=== PATIENT | female | born 1965 | race Caucasian/White ===

== ENCOUNTER 2021-02-22 11:03 | Outpatient (REF) | payer MEDICAID, SELFPAY ==
[2021-02-22 11:23] LABS: MANUAL DIFF FLAG NO
[2021-02-22 11:56] LABS: Basophils Percent Auto 0.6 % (0-2); Eosinophils Absolute Auto 0.1 X10*3/uL (0.0-0.4); Eosinophils Percent Auto 1.3 % (0-4); Hematocrit 44.1 % (37.0-47.0); Hemoglobin 14.6 g/dl (12.0-16.0); Imm Gran Abs Auto 0.01 X10*3/uL (0.00-0.03); Imm Gran Pct Auto 0.2 % (0.0-0.4); Lymphocytes Absolute Auto 1.3 X10*3/uL (1.2-4.9); Lymphocytes Percent Auto 23.1 % (20-40); Mean Corpuscular HGB Conc 33.1 g/dl (31.0-35.0); Mean Corpuscular Hemoglobin 30.3 pg (27.0-33.0); Mean Corpuscular Volume 91.5 fL (80.0-98.0); Mean Platelet Volume 11.1 fL (9.4-12.3); Monocytes Absolute Auto 0.4 X10*3/uL (0.1-1.2); Monocytes Percent Auto 7.3 % (2-11); Neutrophils Absolute Auto 3.7 x10*3/uL (2.0-8.3); Neutrophils Percent Auto 67.5 % (45-73); Platelet Count 163 X10*3/uL (160-400); Red Blood Count 4.82 X10*6/uL (4.20-5.50); Red Cell Distribution Width 13.2 % (11.0-16.0); White Blood Count 5.5 X10*3/uL (4.8-10.8)
[2021-02-22 12:35] LABS: Appearance Urine CLEAR; Color Urine YELLOW; Glucose Urine UA NEG (NEG); Leukocyte Esterase Urine NEG (NEG); Nitrite Urine NEG (NEG); Urine Blood NEG (NEG); Urine Ketones NEG (NEG); Urine Protein NEG (NEG-TRACE)
[2021-02-22 12:49] LABS: Alanine Aminotransferase 58 U/L (0-31); Albumin Level 4.6 g/dL (3.5-5.0); Alkaline Phosphatase 137 U/L (39-117); Anion Gap 12 (12-20); Aspartate Amino Transferase 46 U/L (5-31); Bilirubin Total 0.7 mg/dL (0.0-1.0); Blood Urea Nitrogen 7 mg/dL (9-16); Calcium 9.7 mg/dL (8.4-10.2); Carbon Dioxide 24 mmol/L (22-29); Chloride 110 mmol/L (96-108); Cholesterol 167 mg/dL; Estimated Glomerular Filt Rate 49; Glucose Random 123 mg/dL (60-115); HDL Cholesterol 47 mg/dL; LDL Cholesterol Calculated 90 mg/dl; Potassium 4.4 mmol/L (3.3-5.1); Sodium 142 mmol/L (135-145); Total Protein 6.9 g/dL (6.5-8.0); Triglycerides 154 mg/dL
[2021-02-22 14:52] LABS: CT PCR NOT DETECTED (Not Detect.); NG PCR NOT DETECTED (Not Detect.)
[2021-02-23 08:31] LABS: Syphilis Screen Nonreactive (Nonreactive)
[2021-02-23 11:40] LABS: Absolute CD3 Count 1115 cells/uL (840-3060); Absolute CD4 Count 717 cells/uL (490-1740); Absolute CD8 Count 393 cells/uL (180-1170); Absolute Lymphocytes 1322 cells/uL (850-3900); CD4 CD8 Ratio 1.83 (0.86-5.00); Percent CD3 Cells 84 % (57-85); Percent CD4 Cells 54 % (30-61); Percent CD8 Cells 30 % (12-42)
[2021-02-24 16:51] LABS: TS Negative Control Passed; TS Panel A 0; TS Panel B 0; TS Positive Control Passed; TSpotTB Negative (Negative)
[2021-02-24 17:51] LABS: HIV RNA PCR Qn Copies <20 NOT DETECTED copies/mL (NOT DETECTED); HIV RNA PCR Qn Log Copies <1.30 NOT DETECTED (NOT DETECTED)
== END 2021-02-22 11:04 | disposition home or self-care (01) ==
LOC: HO.LAB 11:03
PROVIDERS: PCP Internal Medicine; Visit Provider Internal Medicine
DX: B20 Human immunodeficiency virus [HIV] disease (principal)
CPT/HCPCS: 80053; 80061; 81003; 85025; 86359; 86360; 86481; 86780; 87491; 87536; 87591

== ENCOUNTER 2021-04-10 10:40 | Outpatient (REF) | payer MEDICAID, SELFPAY ==
[2021-04-10 12:37] LABS: Iron 84 mcg/dL (30-160); Percent Iron Saturation 20 % (15-50); Total Iron Binding Capacity 420 mcg/dL (228-428); Unsaturated Iron Binding 336 ug/dL
[2021-04-10 13:00] LABS: Ferritin 23 ng/mL (10-250)
[2021-04-10 13:12] LABS: Folate 4.1 ng/mL (> or = 4.0); Vitamin B12 232 pg/mL (200-900)
[2021-04-13 03:22] LABS: Zinc 85 mcg/dL (60-130)
[2021-04-15 06:06] LABS: Vitamin B1 <6 nmol/L (8-30)
[2021-04-16 18:26] LABS: Vitamin A 62 mcg/dL (38-98)
== END 2021-04-10 10:41 | disposition home or self-care (01) ==
LOC: HO.LAB 10:40
PROVIDERS: PCP Internal Medicine; Referring Provider Surgery; Visit Provider Physician Assistant Surgical
DX: K21.9 Gastro-esophageal reflux disease without esophagitis (principal); E66.9 Obesity, unspecified; Z72.0 Tobacco use; Z90.3 Acquired absence of stomach [part of]
CPT/HCPCS: 36415; 82306; 82607; 82728; 82746; 83540; 84425; 84590; 84630; 99212

== ENCOUNTER 2021-12-28 09:04 | Outpatient (REF) | payer MEDICAID, SELFPAY ==
--- NOTE | ~2021-12-28 | XR_ITS ---
EXAMINATION: XR CHEST CLINICAL INFORMATION: COPD COMPARISON: Previous chest x-ray most recent July 2017 TECHNIQUE: 2 views of the chest were obtained. FINDINGS: The cardiac and mediastinal contours are normal. The lungs are clear. There is no pleural effusion or pneumothorax. There are degenerative changes of the spine. XR/XR chest 2V IMPRESSION: No evidence for acute disease in the chest.
== END 2021-12-28 09:05 | disposition home or self-care (01) ==
LOC: HO.XRAY 09:04
PROVIDERS: PCP Internal Medicine; Visit Provider Internal Medicine
DX: R07.89 Other chest pain (principal)
CPT/HCPCS: 71046

== ENCOUNTER 2022-06-08 11:07 | Emergency (ER) | payer MEDICAID, SELFPAY ==
--- NOTE | ~2022-06-08 | CT_ITS ---
EXAMINATION: CT facial bones wo IV con, CT head/brain wo IV con INDICATION INFORMATION: Reason for Exam fall, head strike, L facial swelling/numb COMPARISON: None TECHNIQUE: Separate noncontrast CT examinations of the head and face were performed. Coronal and sagittal images were created for each examination at the technologist workstation. This CT examination was performed using dose optimization techniques as appropriate, variously including the following: *Automated exposure control *Adjustment of mA and/or kV according to patient size (this includes techniques or standardized protocols for targeted exams where dose is matched to indication/reason for exam; i.e. extremities or head) *Use of iterative reconstruction technique DLP: 848 FINDINGS: Head: Left periorbital soft tissue swelling. No acute osseous abnormality. The mastoid air cells and visualized portions of the paranasal sinuses are well aerated. There is no evidence of acute intracranial hemorrhage or territorial infarction. No abnormal mass effect or midline shift is seen. Baez to white matter differentiation is well preserved. No extra-axial fluid collections are identified. No hydrocephalus. No significant volume loss. There is no abnormal attenuation within the brain parenchyma. Facial Bones: There is no evidence of an acute facial bone fracture. The paranasal sinuses are well aerated. Leftward deviation and osseous spurring of the nasal septum The maxilla and mandible are edentulous. The orbits are unremarkable in appearance. Degenerative changes of the temporomandibular joints. Advanced arthrosis of the atlantodental articulation is noted. CT/CT facial bones wo IV con IMPRESSION: 1. No acute intracranial abnormality. 2. No acute facial fracture.
--- NOTE | ~2022-06-08 | CT_ITS ---
EXAMINATION: CT facial bones wo IV con, CT head/brain wo IV con INDICATION INFORMATION: Reason for Exam fall, head strike, L facial swelling/numb COMPARISON: None TECHNIQUE: Separate noncontrast CT examinations of the head and face were performed. Coronal and sagittal images were created for each examination at the technologist workstation. This CT examination was performed using dose optimization techniques as appropriate, variously including the following: *Automated exposure control *Adjustment of mA and/or kV according to patient size (this includes techniques or standardized protocols for targeted exams where dose is matched to indication/reason for exam; i.e. extremities or head) *Use of iterative reconstruction technique DLP: 848 FINDINGS: Head: Left periorbital soft tissue swelling. No acute osseous abnormality. The mastoid air cells and visualized portions of the paranasal sinuses are well aerated. There is no evidence of acute intracranial hemorrhage or territorial infarction. No abnormal mass effect or midline shift is seen. Baez to white matter differentiation is well preserved. No extra-axial fluid collections are identified. No hydrocephalus. No significant volume loss. There is no abnormal attenuation within the brain parenchyma. Facial Bones: There is no evidence of an acute facial bone fracture. The paranasal sinuses are well aerated. Leftward deviation and osseous spurring of the nasal septum The maxilla and mandible are edentulous. The orbits are unremarkable in appearance. Degenerative changes of the temporomandibular joints. Advanced arthrosis of the atlantodental articulation is noted. CT/CT head/brain wo IV con IMPRESSION: 1. No acute intracranial abnormality. 2. No acute facial fracture.
[2022-06-08 11:11] VITALS: BP 146/71; PULSE 88; RESP 20; TEMP 36.3; O2SAT 96; BMI 32.3
[2022-06-08 11:24] LABS: MANUAL DIFF FLAG NO
--- NOTE | 2022-06-08 11:25 | PC.NURSE ---
pupils - suma. speaks in full sentences.
[2022-06-08 11:26] LABS: Basophils Percent Auto 0.9 % (0-2); Eosinophils Absolute Auto 0.1 X10*3/uL (0.0-0.4); Eosinophils Percent Auto 2.1 % (0-4); Hematocrit 39.2 % (37.0-47.0); Imm Gran Abs Auto 0.01 X10*3/uL (0.00-0.03); Imm Gran Pct Auto 0.2 % (0.0-0.4); Lymphocytes Absolute Auto 1.7 X10*3/uL (1.2-4.9); Mean Corpuscular HGB Conc 33.2 g/dl (31.0-35.0); Mean Corpuscular Volume 90.5 fL (80.0-98.0); Mean Platelet Volume 10.2 fL (9.4-12.3); Monocytes Absolute Auto 0.3 X10*3/uL (0.1-1.2); Monocytes Percent Auto 7.6 % (2-11); Neutrophils Absolute Auto 2.1 x10*3/uL (2.0-8.3); Neutrophils Percent Auto 49.2 % (45-73); Platelet Count 179 X10*3/uL (160-400); Red Blood Count 4.33 X10*6/uL (4.20-5.50); Red Cell Distribution Width 13.6 % (11.0-16.0); White Blood Count 4.3 X10*3/uL (4.8-10.8)
[2022-06-08 11:41] LABS: Anion Gap 14 (12-20); Blood Urea Nitrogen 6 mg/dL (9-16); Calcium 8.6 mg/dL (8.4-10.2); Carbon Dioxide 25 mmol/L (22-29); Chloride 105 mmol/L (96-108); Creatinine Clr Calc Pharmacy 68.3; Estimated Glomerular Filt Rate 55; Glucose Random 185 mg/dL (60-115); Potassium 3.5 mmol/L (3.3-5.1); Sodium 140 mmol/L (135-145)
--- NOTE | 2022-06-08 12:48 | ED_ITS ---
HPI - General Adult General Chief complaint: Head Injury Stated complaint: head inj ? fall l side head numbness Time Seen by Provider: 06/08/22 12:39 History of Present Illness HPI narrative: Patient complains of bruising and a feeling of numbness on her left forehead after off fall 3 days ago, she does not know how she fell, she went to bed and then woke up on the floors several hours later, she immediately came to full alertness, but she does not remember how she fell or why she fell she denies any preceding chest pain she has no headache never had a headache she denies any difficulty with her balance, she was not confused she had no weakness in extremities on left or right side, she has felt fine ever since and is not recall any preceding symptoms and does not know how she came to be on the floor, she denies any drugs or alcohol She does take amitriptyline as a sleep aid and otherwise only medical history is high blood pressure and HIV, her HIV is well controlled she says viral load is undetectable and she is compliant with her medications At this time the only complaint is some bruising on the left forehead as well as a feeling of numbness described as decreased sensation in the forehead area around the bruising She denies any neck pain no back pain no extremity injuries denies any muscle weakness Related Data Home Medications Medication Instructions Recorded Confirmed amitriptyline 150 mg tablet 150 mg PO BEDTIME 04/10/21 04/10/21 amitriptyline 50 mg tablet 50 mg PO BEDTIME 04/10/21 04/10/21 atorvastatin 20 mg tablet 20 mg PO DAILY 04/10/21 04/10/21 bictegravir 50 mg-emtricitabine 1 tab PO DAILY 04/10/21 04/10/21 200 mg-tenofovir alafenam 25 mg tablet (Biktarvy) hydroxyzine pamoate 50 mg capsule 50 mg PO TID 04/10/21 04/10/21 nicotine 21 mg/24 hr daily 1 patch topical DAILY 04/10/21 04/10/21 transdermal patch pantoprazole 20 mg tablet,delayed 20 mg PO DAILY 04/10/21 04/10/21 release varenicline 1 mg tablet 1 mg PO BID 04/10/21 04/10/21 Previous Rx's Medication Instructions Recorded cholecalciferol (vitamin D3) 125 125 mcg PO DAILY #30 caps 04/10/21 mcg (5,000 unit) capsule thiamine HCl (vitamin B1) 100 mg 100 mg PO DAILY #30 tabs 04/15/21 tablet Allergies Allergy/AdvReac Type Severity Reaction Status Date / Time KYUNG Inhibitors Allergy Intermediate RASH Verified 04/10/21 10:45 [KYUNG INHIBITORS] methocarbamol [From ROBAXIN] Allergy Intermediate RASH, hives Verified 04/10/21 10:45 aspirin [ASA] Allergy Unknown LIVER AND Verified 04/10/21 10:45 KIDNEY ISSUES cyclobenzaprine Allergy Unknown ITCHY Verified 04/10/21 10:45 [From FLEXERIL] THROAT NSAIDS (Non-Steroidal AdvReac Unknown LIVER Verified 04/10/21 10:45 Anti-Inflamma PROBLEMS [NSAIDS (NON-STEROIDAL ANTI-INFLAMMA] AC Inhibitors Allergy Unknown unknown Uncoded 04/10/21 10:45 Flexeril Allergy Unknown unkown Uncoded 04/10/21 10:45 Motrin Allergy Unknown unknown Uncoded 04/10/21 10:45 Pt states no known allergy to Allergy Unknown unknown Uncoded 04/10/21 10:45 PMFSH Past Medical History Source: nursing notes reviewed Surgical History Hx of bariatric surgery Family History Family History Mother Emphysema lung Father No problems noted. Sister No problems noted. Sister No problems noted. Sister Back problem Brother Hypertension Diabetes Brother Hypertension Diabetes Brother Diabetes Hypertension Social History Social History Alcohol intake: current Alcohol intake frequency: holidays/special occasions only Patient Tobacco Use Status: Current someday Tobacco user Tobacco use type: Cigarette Cigarettes Per Day: 5 Advance Directives: Yes Advance Directives Information Provided: No Advance Directives on File: No Physical Exam ED Vital Signs: Vital Signs - 24 hr 06/08/22 11:11 06/08/22 14:12 Temperature 97.3 F Pulse Rate 88 73 Respiratory Rate 20 16 Blood Pressure 146/71 H 167/77 H Pulse Oximetry 96 97 Oxygen Delivery Method Room Air BMI result Body Mass Index 32.3 General appearance no acute distress, cooperative There is no scalp hematoma, no raccoon eyes, no scalp defect no Abebe sign Facial exam there is an abrasion and some ecchymosis just above the left orbit on the forehead, there is some swelling of the eyelid Mandible is fully mobile, no dental injuries The neck is supple and nontender The chest is clear to auscultation with full symmetric breath sounds, no chest wall tenderness Heart no murmur Abdomen soft nontender Extremities full range of motion x4 without tenderness swelling or deformity Neuro gait and balance are normal, interaction comprehension and expression are normal, motor is 5/5 x4, there is no facial asymmetry, sensation on the forehead is decreased on the left side, she can not distinguish sharp from dull on the left side of the forehead, she does feel the pressure of the touch Right side of the forehead has normal sensation and distinguishes between sharp and dull Otherwise there is no obvious cranial nerve deficit Finger to nose is normal, balance is normal, cerebellar exam normal Course Course Course Narrative: No significant abnormalities on chemistry or CBC Troponin was negative, 3.5 EKG was a normal sinus rhythm, intervals, IA interval normal, QRS duration normal, QT normal There were no acute ST elevations, but there were EKG changes from the previous EKG done in 2016, there is now Flattening of T-waves in multiple leads Patient never experienced chest pain, it is 3 days since her fainting episode, no evidence of acute coronary syndrome now The numb feeling on the left side of her forehead is likely related to bumping her head, there is no motor deficit, no facial asymmetry CT of the head and facial bones was negative with no evidence of bleed or fracture or stroke Plan is to follow with her doctor for evaluation of syncopal episode, EKG ch anges and possible referral to [employer] for a Holter monitor Otherwise well-appearing patient ambulating easily with no discomfort is discharged Medical Decision Making Lab Data [facility] Lab Attestation statement: I reviewed the patient's lab results. 06/08/22 11:20 06/08/22 11:20 Labs: Lab Results 06/08/22 06/08/22 06/08/22 Range/Units 11:20 11:20 13:57 WBC 4.3 L (4.8-10.8) X10*3/uL RBC 4.33 (4.20-5.50) X10*6/uL Hgb 13.0 (12.0-16.0) g/dl Hct 39.2 (37.0-47.0) % MCV 90.5 (80.0-98.0) fL MCH 30.0 (27.0-33.0) pg MCHC 33.2 (31.0-35.0) g/dl RDW 13.6 (11.0-16.0) % Plt Count 179 (160-400) X10*3/uL MPV 10.2 (9.4-12.3) fL Immature Gran % (Auto) 0.2 (0.0-0.4) % Neut % (Auto) 49.2 (45-73) % Lymph % (Auto) 40.0 (20-40) % Carson % (Auto) 7.6 (2-11) % Eos % (Auto) 2.1 (0-4) % Baso % (Auto) 0.9 (0-2) % Lymph # (Auto) 1.7 (1.2-4.9) X10*3/uL Carson # (Auto) 0.3 (0.1-1.2) X10*3/uL Eos # (Auto) 0.1 (0.0-0.4) X10*3/uL Baso # (Auto) 0.0 (0.0-0.2) X10*3/uL Abs Immat Gran (auto) 0.01 (0.00-0.03) X10*3/uL Absolute Neuts (auto) 2.1 (2.0-8.3) x10*3/uL Absolute Nucleated RBC 0.000 (0.0-0.012) X10*3/uL Nucleated RBC % (auto) 0.0 (0.0-0.2) /100WBC Sodium 140 (135-145) mmol/L Potassium 3.5 D (3.3-5.1) mmol/L Chloride 105 (96-108) mmol/L Carbon Dioxide 25 (22-29) mmol/L Anion Gap 14 (12-20) BUN 6 L (9-16) mg/dL Creatinine 1.03 (0.5-1.4) mg/dL Estim Creat Clear Calc 68.3 Estimated GFR 55 Random Glucose 185 H (60-115) mg/dL Calcium 8.6 D (8.4-10.2) mg/dL Troponin I High Sens < 3.5 (<3.5-17.0) ng/L Discharge Plan Discharge Clinical Impression: Syncope, Lt facial numbness Patient Disposition: Home, Self-Care Additional Instructions: We are not sure what made you fall to the floor, the heart attack blood test was normal, the EKG did not diagnose any acute heart problem The CT of head and face did not show any broken bones or bleed We believe the numbness on your left side of the forehead is likely from banging your head when you fell Best plan is follow closely with primary doctor for syncope or fainting episode You may need to wear a Holter monitor which is a monitor that you take home with you to see if you are having any arrhythmias that could cause you to faint Return any time for weakness, increasing loss of sensation, bed headaches chest pain palpitations feeling faint or fainting any worse condition or any concerns Prescriptions: No Action cholecalciferol (vitamin D3) 125 mcg (5,000 unit) capsule 125 mcg PO DAILY Qty: 30 3RF thiamine HCl (vitamin B1) 100 mg tablet 100 mg PO DAILY Qty: 30 3RF hydroxyzine pamoate 50 mg capsule 50 mg PO TID varenicline 1 mg tablet 1 mg PO BID amitriptyline 50 mg tablet 50 mg PO BEDTIME amitriptyline 150 mg tablet 150 mg PO BEDTIME atorvastatin 20 mg tablet 20 mg PO DAILY pantoprazole 20 mg tablet,delayed release (DR/EC) 20 mg PO DAILY Biktarvy 50-200-25 mg tablet 1 tab PO DAILY nicotine 21 mg/24 hr patch 24 hour 1 patch topical DAILY Interventions: ED Discharge Assessment Last Done: 06/08/22 15:17 Discharge Date/Time: 06/08/22 15:21
--- NOTE | 2022-06-08 12:55 | ECG_ITS ---
Test Reason : SYNCOPE Blood Pressure : / mmHG Vent. Rate : 073 BPM Atrial Rate : 073 BPM P-R Int : 158 ms QRS Dur : 092 ms QT Int : 374 ms P-R-T Axes : 060 027 066 degrees QTc Int : 412 ms Normal sinus rhythm Nonspecific ST and T wave abnormality Abnormal ECG When compared with ECG of 17-FEB-2016 17:19, Nonspecific T wave abnormality now evident in Inferior leads Nonspecific T wave abnormality now evident in Anterolateral leads Referred By: Yrn Figueroa Electronically Signed By:EULALIO GAGE MD
[2022-06-08 14:12] VITALS: BP 167/77; PULSE 73; RESP 16; O2SAT 97
[2022-06-08 14:27] LABS: Troponin-I High Sensitivity < 3.5 ng/L (<3.5-17.0)
== END 2022-06-08 15:21 | disposition home or self-care (01) ==
PROVIDERS: Physician Assistant Medical; Emergency Provider Emergency Medicine; PCP Internal Medicine
DX: R55 Syncope and collapse (principal); R20.0 Anesthesia of skin; I10 Essential (primary) hypertension; B20 Human immunodeficiency virus [HIV] disease; Z98.84 Bariatric surgery status; Z79.02 Long term (current) use of antithrombotics/antiplatelets; Z79.899 Other long term (current) drug therapy
CPT/HCPCS: 36415; 70450; 70486; 80048; 84484; 85025; 93005; 99284

== ENCOUNTER 2023-02-11 14:33 | Outpatient (REF) | payer MEDICAID, SELFPAY ==
[2023-02-11 18:00] LABS: Alanine Aminotransferase 24 U/L (0-31); Albumin Level 4.5 g/dL (3.5-5.0); Alkaline Phosphatase 169 U/L (39-117); Anion Gap 13 (12-20); Aspartate Amino Transferase 22 U/L (5-31); Bilirubin Direct 0.2 mg/dL (0.0-0.5); Bilirubin Total 0.5 mg/dL (0.0-1.0); Blood Urea Nitrogen 6 mg/dL (9-16); Calcium 9.5 mg/dL (8.4-10.2); Carbon Dioxide 27 mmol/L (22-29); Chloride 107 mmol/L (96-108); Cholesterol 202 mg/dL (<200); Estimated Glomerular Filt Rate 52; Glucose Random 109 mg/dL (60-115); HDL Cholesterol 57 mg/dL (>40); LDL Cholesterol Calculated 113 mg/dL (<100); Potassium 3.8 mmol/L (3.3-5.1); Sodium 143 mmol/L (135-145); Total Protein 7.1 g/dL (6.5-8.0); Triglycerides 164 mg/dL (<150)
[2023-02-11 18:09] LABS: TSH reflex Free T4 6.32 uIU/mL (0.32-4.0)
[2023-02-11 18:49] LABS: Free T4 (Free Thyroxine) 0.74 ng/dL (0.71-1.85)
== END 2023-02-11 14:34 | disposition home or self-care (01) ==
LOC: HO.CHCLDS 14:33
PROVIDERS: Visit Provider Internal Medicine
DX: E03.9 Hypothyroidism, unspecified (principal); E78.00 Pure hypercholesterolemia, unspecified
CPT/HCPCS: 36415; 80048; 80061; 80076; 84439; 84443

== ENCOUNTER 2023-05-29 11:05 | Outpatient (AMB) | payer MEDICAID, SELFPAY ==
--- NOTE | 2023-05-29 11:09 | MHC.OFFVISWM ---
Intake VS Expanded 05/29/23 11:22 BP 157/78 H Blood Pressure Location Rt brachial Blood Pressure Position Sitting Pulse 90 Pulse Source Pulse Oximeter Temp 97.0 F Temperature Source Tympanic Pulse Oximetry 93 Oxygen Delivery Method Room Air Height 5 ft 6 in Weight 201 lb BMI 32.4 Body Fat % 38.9 Body Fat Mass 78.0 Fat Free Mass 122.8 Visceral Fat Rating 10.0 Body Water % 43.4 Body Water Mass 87.0 Muscle Mass/Score 116.6 Basal Metabolic Rate/Score 1,676 Intake Visit Reasons: (OV) PO LSG 08/08/2016 Allergies KYUNG Inhibitors [KYUNG INHIBITORS] Allergy (Intermediate, Verified 05/29/23 11:25) RASH methocarbamol [From ROBAXIN] Allergy (Intermediate, Verified 05/29/23 11:25) RASH, hives aspirin [ASA] Allergy (Unknown, Verified 05/29/23 11:25) LIVER AND KIDNEY ISSUES cyclobenzaprine [From FLEXERIL] Allergy (Unknown, Verified 05/29/23 11:25) ITCHY THROAT NSAIDS (Non-Steroidal Anti-Inflamma [NSAIDS (NON-STEROIDAL ANTI-INFLAMMA] Adverse Reaction (Unknown, Verified 05/29/23 11:25) LIVER PROBLEMS AC Inhibitors Allergy (Unknown, Uncoded 05/29/23 11:25) unknown Flexeril Allergy (Unknown, Uncoded 05/29/23 11:25) unkown Motrin Allergy (Unknown, Uncoded 05/29/23 11:25) unknown Pt states no known allergy to Allergy (Unknown, Uncoded 05/29/23 11:25) unknown Medication List - Last Reconciled 05/29/23 by SHERLYN Taylor amitriptyline 150 mg PO BEDTIME amlodipine 10 mg PO DAILY atorvastatin 20 mg PO DAILY ihreaxzip-tbrryweh-akhqfpc ala 50-200-25 mg (Biktarvy) 1 tab PO DAILY cyanocobalamin (vitamin B-12) (Vitamin B-12) 1,000 mcg PO DAILY hydrocodone-acetaminophen 5-325 mg 1 tab PO Q6H PRN hydroxyzine pamoate 50 mg PO TID levothyroxine 25 mcg PO DAILY pantoprazole 20 mg PO DAILY HPI HPI Comments History of Present Illness Details This?is a?58?yo female who is s/p LSG 08/08/2016. Presents for 5 year 9 month post op visit. Weight at last visit on 04/10/2021 was 195.2 pounds with a BMI of 31, weight today is 201 pounds, representing a 5.8 pound weight gain with a BMI today of 32.4.? No complaints of nausea, emesis, abdominal pain or reflux, or constipation. Pt returns today with the goal of getting back on track. Working hours MWF 12-3:30pm, T 9-11:30am, off . Present meal plan includes: not following a meal plan, I don't eat at all, I have a poor appetite uses Pure protein shakes and bars but doesn't like those now 2XL coffees per day- 12 creams, 12 sugars Exercise routine includes: none currently but likes to walk [facility] Surgical History Hx of bariatric surgery Family History Mother Emphysema lung Father No problems noted. Sister No problems noted. Sister No problems noted. Sister Back problem Brother Hypertension Diabetes Brother Hypertension Diabetes Brother Diabetes Hypertension Social History (System 01/16/23 @ 13:10 by Kristal Kovacs) Alcohol intake: current Alcohol intake frequency: holidays/special occasions only Patient Tobacco Use Status: Current someday Tobacco user Tobacco use type: Cigarette Cigarettes Per Day: 5 Physical Exam Vital Signs: Last Vital Signs Temp 97.0 F 05/29/23 11:22 Pulse 90 05/29/23 11:22 BP 157/78 H 05/29/23 11:22 Pulse Ox 93 05/29/23 11:22 Oxygen Delivery Method Room Air 05/29/23 11:22 BMI result Body Mass Index 32.4 Assessment & Plan Assessment & Plan (1) Obesity (BMI 30.0-34.9): Code(s): E66.9 - Obesity, unspecified (2) Intestinal malabsorption following gastrectomy: Code(s): K91.2 - Postsurgical malabsorption, not elsewhere classified; Z90.3 - Acquired absence of stomach [part of] Plan New plan with goal 80g protein/day: breakfast- Premier protein shake, 2 scoops in 8oz UAM lunch- Premier shake, 1 scoop in 8oz UAM dinner- 6 forks meal, 6 forks salad or veg (can use eggs, yogurt, CC for protein if she does not want to cook meat) evening snack- ZP or Fitcrunch bar cut down on creams and sugars in coffees Gave handout on home videos, encouraged trying a walking video Labs ordered Discussed risks of smoking after bariatric surgery and importance of smoking cessation RTC 6-8 weeks, texted plan to pt and encouraged her to reach out between appts with any questions. Patient is obese and is not considered stable at this time. I spent a total of 30 minutes reviewing/updating records, examining the patient and counseling the patient on weight management as detailed above. Orders: Orders Insulin Today K91.2 - Postsurgical malabsorption, not elsewhere classified, Z90.3 - Acquired absence of stomach [part of] Hemoglobin A1c Today K91.2 - Postsurgical malabsorption, not elsewhere classified, Z90.3 - Acquired absence of stomach [part of] Vitamin B1 Today K91.2 - Postsurgical malabsorption, not elsewhere classified, Z90.3 - Acquired absence of stomach [part of] Vitamin A Today K91.2 - Postsurgical malabsorption, not elsewhere classified, Z90.3 - Acquired absence of stomach [part of] TSH reflex Free T4 Today K91.2 - Postsurgical malabsorption, not elsewhere classified, Z90.3 - Acquired absence of stomach [part of] Ferritin Today K91.2 - Postsurgical malabsorption, not elsewhere classified, Z90.3 - Acquired absence of stomach [part of] Complete Blood Count Auto Diff Today K91.2 - Postsurgical malabsorption, not elsewhere classified, Z90.3 - Acquired absence of stomach [part of] Lipid Panel Today K91.2 - Postsurgical malabsorption, not elsewhere classified, Z90.3 - Acquired absence of stomach [part of] IRON PROFILE Today K91.2 - Postsurgical malabsorption, not elsewhere classified, Z90.3 - Acquired absence of stomach [part of] Comprehensive Met. Panel Today K91.2 - Postsurgical malabsorption, not elsewhere classified, Z90.3 - Acquired absence of stomach [part of] Vitamin B12 and Folate Today K91.2 - Postsurgical malabsorption, not elsewhere classified, Z90.3 - Acquired absence of stomach [part of] Zinc Today K91.2 - Postsurgical malabsorption, not elsewhere classified, Z90.3 - Acquired absence of stomach [part of] C Reactive Protein Today K91.2 - Postsurgical malabsorption, not elsewhere classified, Z90.3 - Acquired absence of stomach [part of] Vitamin D 25-OH Total Today K91.2 - Postsurgical malabsorption, not elsewhere classified, Z90.3 - Acquired absence of stomach [part of] Coding Level of Care Code Est Pt Level 4 (02444) Diagnoses Obesity (BMI 30.0-34.9) E66.9 Intestinal malabsorption following gastrectomy K91.2; Z90.3
[2023-05-29 11:22] VITALS: BP 157/78; PULSE 90; TEMP 36.1; O2SAT 93; BMI 32.4
== END 2023-05-29 12:59 | disposition home or self-care (01) ==
PROVIDERS: PCP Internal Medicine; Visit Provider Physician Assistant Surgical
DX: E66.9 Obesity, unspecified (principal); K91.2 Postsurgical malabsorption, not elsewhere classified; Z90.3 Acquired absence of stomach [part of]
CPT/HCPCS: 99214

== ENCOUNTER → 2023-05-29 11:05 | Outpatient (BNVA) | payer MEDICAID, SELFPAY | PROVIDERS: PCP Internal Medicine; Visit Provider Physician Assistant Surgical | DX: E66.9 Obesity, unspecified (principal); K91.2 Postsurgical malabsorption, not elsewhere classified; Z90.3 Acquired absence of stomach [part of]; Z68.32 Body mass index [BMI] 32.0-32.9, adult | CPT/HCPCS: 99212 ==

== ENCOUNTER 2023-07-03 10:00 | Outpatient (REF) | payer MEDICAID, SELFPAY ==
[2023-07-03 14:26] LABS: MANUAL DIFF FLAG NO
[2023-07-03 15:13] LABS: Alanine Aminotransferase 50 U/L (0-31); Albumin Level 4.3 g/dL (3.5-5.0); Alkaline Phosphatase 161 U/L (39-117); Anion Gap 12 (12-20); Aspartate Amino Transferase 46 U/L (5-31); Bilirubin Total 0.9 mg/dL (0.0-1.0); Blood Urea Nitrogen 8 mg/dL (9-16); C Reactive Protein 0.51 mg/dL (< or = 0.50); Calcium 9.1 mg/dL (8.4-10.2); Carbon Dioxide 24 mmol/L (22-29); Chloride 106 mmol/L (96-108); Cholesterol 178 mg/dL (<200); Estimated Glomerular Filt Rate 53; Glucose Random 196 mg/dL (60-115); HDL Cholesterol 46 mg/dL (>40); Iron 97 mcg/dL (30-160); LDL Cholesterol Calculated 102 mg/dL (<100); Percent Iron Saturation 30 % (15-50); Potassium 3.4 mmol/L (3.3-5.1); Sodium 139 mmol/L (135-145); Total Iron Binding Capacity 325 mcg/dL (228-428); Total Protein 6.6 g/dL (6.5-8.0); Triglycerides 153 mg/dL (<150); Unsaturated Iron Binding 228 ug/dL
[2023-07-03 15:15] LABS: Alanine Aminotransferase 51 U/L (0-31); Albumin Level 4.4 g/dL (3.5-5.0); Alkaline Phosphatase 160 U/L (39-117); Anion Gap 12 (12-20); Aspartate Amino Transferase 47 U/L (5-31); Bilirubin Total 0.9 mg/dL (0.0-1.0); Blood Urea Nitrogen 7 mg/dL (9-16); Calcium 9.3 mg/dL (8.4-10.2); Carbon Dioxide 24 mmol/L (22-29); Chloride 106 mmol/L (96-108); Estimated Glomerular Filt Rate 53; Glucose Random 194 mg/dL (60-115); Potassium 3.4 mmol/L (3.3-5.1); Sodium 139 mmol/L (135-145); Total Protein 6.7 g/dL (6.5-8.0)
[2023-07-03 15:16] LABS: Basophils Absolute Auto 0.1 X10*3/uL (0.0-0.2); Eosinophils Absolute Auto 0.1 X10*3/uL (0.0-0.4); Eosinophils Percent Auto 1.6 % (0-4); Hematocrit 44.6 % (37.0-47.0); Hemoglobin 15.2 g/dl (12.0-16.0); Imm Gran Abs Auto 0.02 X10*3/uL (0.00-0.03); Imm Gran Pct Auto 0.4 % (0.0-0.4); Lymphocytes Absolute Auto 1.4 X10*3/uL (1.2-4.9); Lymphocytes Percent Auto 27.5 % (20-40); Mean Corpuscular HGB Conc 34.1 g/dl (31.0-35.0); Mean Corpuscular Hemoglobin 31.3 pg (27.0-33.0); Mean Corpuscular Volume 91.8 fL (80.0-98.0); Monocytes Absolute Auto 0.3 X10*3/uL (0.1-1.2); Monocytes Percent Auto 5.5 % (2-11); Neutrophils Absolute Auto 3.2 x10*3/uL (2.0-8.3); Platelet Count 172 X10*3/uL (160-400); Red Blood Count 4.86 X10*6/uL (4.20-5.50); Red Cell Distribution Width 13.2 % (11.0-16.0); White Blood Count 5.1 X10*3/uL (4.8-10.8)
[2023-07-03 15:29] LABS: Estimated Average Glucose 177 mg/dL; Hemoglobin A1c % 7.8 % (<6.0); TSH reflex Free T4 4.54 uIU/mL (0.32-4.0)
[2023-07-03 15:34] LABS: Ferritin 54 ng/mL (10-250); Vitamin D 25-OH Total 18.4 ng/mL (>30)
[2023-07-03 15:35] LABS: Insulin 22 uU/mL (2-29); TSH reflex Free T4 4.42 uIU/mL (0.32-4.0)
[2023-07-03 15:40] LABS: Folate 3.4 ng/mL (> or = 4.0); Vitamin B12 > 2000 pg/mL (200-900)
[2023-07-03 15:44] LABS: Reflex LDLD? No
[2023-07-03 16:12] LABS: Free T4 (Free Thyroxine) 0.87 ng/dL (0.71-1.85)
[2023-07-03 22:26] LABS: MANUAL DIFF FLAG NO
[2023-07-03 22:27] LABS: Basophils Absolute Auto 0.1 X10*3/uL (0.0-0.2); Eosinophils Absolute Auto 0.1 X10*3/uL (0.0-0.4); Eosinophils Percent Auto 1.8 % (0-4); Hematocrit 42.7 % (37.0-47.0); Hemoglobin 14.4 g/dl (12.0-16.0); Imm Gran Abs Auto 0.01 X10*3/uL (0.00-0.03); Imm Gran Pct Auto 0.2 % (0.0-0.4); Lymphocytes Absolute Auto 1.3 X10*3/uL (1.2-4.9); Lymphocytes Percent Auto 25.9 % (20-40); Mean Corpuscular HGB Conc 33.7 g/dl (31.0-35.0); Mean Corpuscular Hemoglobin 30.9 pg (27.0-33.0); Mean Corpuscular Volume 91.6 fL (80.0-98.0); Mean Platelet Volume 10.9 fL (9.4-12.3); Monocytes Absolute Auto 0.3 X10*3/uL (0.1-1.2); Monocytes Percent Auto 5.7 % (2-11); Neutrophils Absolute Auto 3.3 x10*3/uL (2.0-8.3); Neutrophils Percent Auto 65.4 % (45-73); Platelet Count 168 X10*3/uL (160-400); Red Blood Count 4.66 X10*6/uL (4.20-5.50); Red Cell Distribution Width 13.2 % (11.0-16.0); White Blood Count 5.1 X10*3/uL (4.8-10.8)
[2023-07-04 12:24] LABS: RPR Rapid Plasma Reagin NON-REACTIVE (NON-REACTIVE)
[2023-07-04 12:59] LABS: Absolute CD3 Count 1121 cells/uL (840-3060); Absolute CD4 Count 784 cells/uL (490-1740); Absolute CD8 Count 336 cells/uL (180-1170); Absolute Lymphocytes 1328 cells/uL (850-3900); CD4 CD8 Ratio 2.34 (0.86-5.00); Percent CD3 Cells 84 % (57-85); Percent CD4 Cells 59 % (30-61); Percent CD8 Cells 25 % (12-42)
[2023-07-05 20:14] LABS: HIV RNA PCR Qn Copies 64 copies/mL (NOT DETECTED); HIV RNA PCR Qn Log Copies 1.81 (NOT DETECTED)
[2023-07-06 07:12] LABS: TS Negative Control Passed; TS Panel A 0; TS Panel B 0; TS Positive Control Passed; TSpotTB Negative (Negative)
[2023-07-08 14:53] LABS: Vitamin B1 8 nmol/L (8-30)
[2023-07-08 17:37] LABS: Vitamin A 50 mcg/dL (38-98)
== END 2023-07-03 10:01 | disposition home or self-care (01) ==
LOC: HO.CHCLDS 10:00
PROVIDERS: Referring Provider Physician Assistant Surgical; Visit Provider Internal Medicine
DX: B20 Human immunodeficiency virus [HIV] disease (principal); E03.9 Hypothyroidism, unspecified; K91.2 Postsurgical malabsorption, not elsewhere classified; Z90.3 Acquired absence of stomach [part of]
CPT/HCPCS: 36415; 80053; 80061; 82306; 82607; 82728; 82746; 83036; 83525; 83540; 84425; 84439; 84443; 84590; 85025; 86140; 86359; 86360; 86481; 86592; 87536

== ENCOUNTER 2023-09-09 10:51 | Emergency (ER) | payer OTHER, MEDICAID, SELFPAY ==
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
[2023-09-09 11:01] VITALS: BP 156/82; PULSE 96; O2SAT 98
[2023-09-09 11:06] VITALS: BP 160/87; PULSE 82; RESP 16; TEMP 35.9; O2SAT 96; BMI 32.3
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
[2023-09-09] MEDS: diazePAM 2 MG TABLET PO (12:18)
[2023-09-09] MEDS: HYDROcodone Bit/Acetam 5/325 TABLET 1 TAB PO (12:18)
[2023-09-09 14:13] VITALS: BP 160/88; PULSE 68; RESP 16; TEMP 36.1; O2SAT 98
[2023-09-09 15:28] VITALS: BP 160/88; PULSE 68; RESP 16; TEMP 36.1; O2SAT 98
== END 2023-09-09 15:30 | disposition home or self-care (01) ==
PROVIDERS: Emergency Provider Emergency Medicine; PCP Internal Medicine
DX: S16.1XXA Strain of muscle, fascia and tendon at neck level, initial encounter (principal); S39.012A Strain of muscle, fascia and tendon of lower back, initial encounter; S09.90XA Unspecified injury of head, initial encounter; V47.5XXA Car driver injured in collision with fixed or stationary object in traffic accident, initial encounter; Y93.9 Activity, unspecified; Y92.410 Unspecified street and highway as the place of occurrence of the external cause; Y99.9 Unspecified external cause status
CPT/HCPCS: 70450; 72072; 72100; 72125; 99283; 99284

== ENCOUNTER 2023-12-22 10:03 | Outpatient (REF) | payer OTHER, MEDICAID, SELFPAY ==
[2023-12-22 14:28] LABS: MANUAL DIFF FLAG NO
[2023-12-22 14:39] LABS: Basophils Absolute Auto 0.1 X10*3/uL (0.0-0.2); Basophils Percent Auto 1.1 % (0-2); Eosinophils Absolute Auto 0.1 X10*3/uL (0.0-0.4); Eosinophils Percent Auto 1.1 % (0-4); Hematocrit 39.4 % (37.0-47.0); Hemoglobin 13.8 g/dl (12.0-16.0); Imm Gran Abs Auto 0.01 X10*3/uL (0.00-0.03); Imm Gran Pct Auto 0.2 % (0.0-0.4); Lymphocytes Absolute Auto 1.1 X10*3/uL (1.2-4.9); Lymphocytes Percent Auto 24.8 % (20-40); Mean Corpuscular Hemoglobin 31.8 pg (27.0-33.0); Mean Corpuscular Volume 90.8 fL (80.0-98.0); Mean Platelet Volume 11.1 fL (9.4-12.3); Monocytes Absolute Auto 0.3 X10*3/uL (0.1-1.2); Monocytes Percent Auto 7.4 % (2-11); Neutrophils Absolute Auto 2.8 x10*3/uL (2.0-8.3); Neutrophils Percent Auto 65.4 % (45-73); Platelet Count 158 X10*3/uL (160-400); Red Blood Count 4.34 X10*6/uL (4.20-5.50); Red Cell Distribution Width 12.6 % (11.0-16.0); White Blood Count 4.4 X10*3/uL (4.8-10.8)
[2023-12-22 14:59] LABS: Alanine Aminotransferase 34 U/L (0-31); Albumin Level 4.3 g/dL (3.5-5.0); Alkaline Phosphatase 132 U/L (39-117); Anion Gap 13 (12-20); Aspartate Amino Transferase 29 U/L (5-31); Bilirubin Total 0.6 mg/dL (0.0-1.0); Blood Urea Nitrogen 10 mg/dL (9-16); Calcium 9.5 mg/dL (8.4-10.2); Carbon Dioxide 23 mmol/L (22-29); Chloride 109 mmol/L (96-108); Cholesterol 195 mg/dL (<200); Estimated Glomerular Filt Rate 54; Glucose Random 158 mg/dL (60-115); HDL Cholesterol 48 mg/dL (>40); LDL Cholesterol Calculated 117 mg/dL (<100); Potassium 3.8 mmol/L (3.3-5.1); Sodium 141 mmol/L (135-145); Total Protein 6.5 g/dL (6.5-8.0); Triglycerides 154 mg/dL (<150)
[2023-12-22 15:21] LABS: Reflex LDLD? No
[2023-12-23 03:46] LABS: CT PCR NOT DETECTED (Not Detect.); NG PCR NOT DETECTED (Not Detect.)
[2023-12-23 08:25] LABS: HBS Num1 38.56 mIU/mL (0-7.99); HBc Num1 0.08 S/CO (0.00-0.79); HBsAGNum1 0.28 S/CO (0.00-0.99); Hepatitis B Core Antibody Nonreactive (Nonreactive); Hepatitis B Surface Antigen Negative (Negative); ~HepC Num1 0.09 S/CO (0.00-0.79); ~Hepatitis B Surface Antibody REACTIVE (Nonreactive); ~Hepatitis C Antibody Nonreactive (Nonreactive)
[2023-12-23 08:28] LABS: Syphilis Screen Nonreactive (Nonreactive)
[2023-12-23 08:30] LABS: Hepatitis A Antibody IgG REACTIVE (Nonreactive); ~Hepatitis A Antibody IgG 2.52 S/CO (0.00-0.99)
[2023-12-24 08:14] LABS: HIV RNA PCR Qn Copies NOT DETECTED copies/mL (NOT DETECTED); HIV RNA PCR Qn Log Copies NOT DETECTED (NOT DETECTED)
[2023-12-25 18:47] LABS: TS Negative Control Passed; TS Panel A 0; TS Panel B 0; TS Positive Control Passed; TSpotTB Negative (Negative)
[2023-12-26 14:44] LABS: Absolute CD3 Count 864 cells/uL (840-3060); Absolute CD4 Count 606 cells/uL (490-1740); Absolute CD8 Count 261 cells/uL (180-1170); Absolute Lymphocytes 1059 cells/uL (850-3900); CD4 CD8 Ratio 2.32 (0.86-5.00); Percent CD3 Cells 82 % (57-85); Percent CD4 Cells 57 % (30-61); Percent CD8 Cells 25 % (12-42)
== END 2023-12-22 10:04 | disposition home or self-care (01) ==
LOC: HO.CHCLDS 10:03
PROVIDERS: Visit Provider Internal Medicine
DX: B20 Human immunodeficiency virus [HIV] disease (principal)
CPT/HCPCS: 36415; 80053; 80061; 85025; 86359; 86360; 86481; 86704; 86706; 86708; 86780; 86803; 87340; 87491; 87536; 87591

== ENCOUNTER 2024-06-30 11:12 | Outpatient (REF) | payer MEDICAID, SELFPAY ==
[2024-06-30 14:18] LABS: MANUAL DIFF FLAG NO
[2024-06-30 14:20] LABS: Basophils Percent Auto 0.5 % (0-2); Eosinophils Percent Auto 0.5 % (0-4); Hematocrit 42.3 % (37.0-47.0); Hemoglobin 14.8 g/dl (12.0-16.0); Imm Gran Abs Auto 0.02 X10*3/uL (0.00-0.03); Imm Gran Pct Auto 0.3 % (0.0-0.4); Lymphocytes Absolute Auto 0.8 X10*3/uL (1.2-4.9); Lymphocytes Percent Auto 12.7 % (20-40); Mean Corpuscular Hemoglobin 31.4 pg (27.0-33.0); Mean Corpuscular Volume 89.6 fL (80.0-98.0); Mean Platelet Volume 11.3 fL (9.4-12.3); Monocytes Absolute Auto 0.6 X10*3/uL (0.1-1.2); Monocytes Percent Auto 9.6 % (2-11); Neutrophils Absolute Auto 4.9 x10*3/uL (2.0-8.3); Neutrophils Percent Auto 76.4 % (45-73); Platelet Count 148 X10*3/uL (160-400); Red Blood Count 4.72 X10*6/uL (4.20-5.50); Red Cell Distribution Width 12.1 % (11.0-16.0); White Blood Count 6.5 X10*3/uL (4.8-10.8)
[2024-06-30 14:38] LABS: Alanine Aminotransferase 39 U/L (0-31); Albumin Level 4.5 g/dL (3.5-5.0); Alkaline Phosphatase 161 U/L (39-117); Anion Gap 13 (12-20); Aspartate Amino Transferase 39 U/L (5-31); Bilirubin Total 1.2 mg/dL (0.0-1.0); Blood Urea Nitrogen 8 mg/dL (9-16); Calcium 9.5 mg/dL (8.4-10.2); Carbon Dioxide 21 mmol/L (22-29); Chloride 109 mmol/L (96-108); Estimated Glomerular Filt Rate 55; Glucose Random 247 mg/dL (60-115); Potassium 3.5 mmol/L (3.3-5.1); Sodium 139 mmol/L (135-145)
[2024-07-02 14:49] LABS: HIV RNA PCR Qn Copies 49 copies/mL (NOT DETECTED); HIV RNA PCR Qn Log Copies 1.69 (NOT DETECTED)
[2024-07-06 13:54] LABS: Absolute CD3 Count 587 cells/uL (840-3060); Absolute CD4 Count 416 cells/uL (490-1740); Absolute CD8 Count 174 cells/uL (180-1170); Absolute Lymphocytes 712 cells/uL (850-3900); CD4 CD8 Ratio 2.39 (0.86-5.00); Percent CD3 Cells 82 % (57-85); Percent CD4 Cells 58 % (30-61); Percent CD8 Cells 24 % (12-42)
== END 2024-06-30 11:13 | disposition home or self-care (01) ==
LOC: HO.CHCLDS 11:12
PROVIDERS: PCP Internal Medicine; Visit Provider Internal Medicine
DX: Z21 Asymptomatic human immunodeficiency virus [HIV] infection status (principal)
CPT/HCPCS: 36415; 80053; 85025; 86359; 86360; 87536

== ENCOUNTER 2024-07-22 13:33 | Outpatient (REF) | payer MEDICAID, SELFPAY ==
[2024-07-22 14:36] LABS: Estimated Average Glucose 169 mg/dL; Hemoglobin A1C 228.6392 umol/L; Hemoglobin A1c % 7.5 % (<6.0)
[2024-07-22 15:11] LABS: TSH reflex Free T4 4.46 uIU/mL (0.32-4.0)
[2024-07-22 15:44] LABS: Free T4 (Free Thyroxine) 1.07 ng/dL (0.71-1.85)
== END 2024-07-22 13:34 | disposition home or self-care (01) ==
LOC: HO.CHCLDS 13:33
PROVIDERS: Visit Provider Internal Medicine
DX: E03.9 Hypothyroidism, unspecified (principal); R73.9 Hyperglycemia, unspecified
CPT/HCPCS: 36415; 83036; 84439; 84443

== ENCOUNTER 2024-07-23 10:00 | Outpatient (REF) | payer MEDICAID, SELFPAY ==
--- NOTE | ~2024-07-23 | MM_ITS ---
EXAMINATION: DXA BONE DENSITY AXIAL HISTORY: E03.9 HYPOTHYROIDISM/ H/O CHRONIC BACK PAIN TECHNIQUE: Raise Dual energy absorptiometry (DEXA) of the lumbar spine, total left hip, and femoral neck was performed. COMPARISON: There are no prior studies for comparison. FINDINGS: The bone mineral density of the lumbar spine is 1.249 with a T-score of 0.6, and a Z-score of 0.9. This is indicative of normal bone mineral density. The bone mineral density of the left total hip is 0.971 with a T-score of -0.3, and a Z-score of 0.0. This is indicative of normal bone mineral density. The bone mineral density of the left femoral neck is 0.855 with a T-score of -1.3, and a Z-score of -0.7. This is indicative of osteopenia. FRACTURE RISK: The FRAX index suggests a risk of major osteoporotic fracture of 7.1%, and of hip fracture 0.8%. MM/XR DEXA axial skeleton IMPRESSION: Based on bone mineral density, and according to World Health Organization (WHO) criteria, the diagnosis is consistent with osteopenia. All bone density values are in grams per centimeter squared (g/cm2). Statistically, 68% of repeat scans fall within 1 SD (+/- 0.010 g/cm2 for AP spine L1-L4) and 1 SD (+/- 0.012 g/cm2 for femur total) FRAX is a trademark of the [employer] [place] for Metabolic Bone Disease, a World Health Organization (WHO) Collaborating Center. Electronically signed by: Vladimir Lyons MD 07/23/2024 11:07 AM EDT
== END 2024-07-23 10:01 | disposition home or self-care (01) ==
LOC: HO.MAMMO 10:00
PROVIDERS: PCP Internal Medicine; Visit Provider Internal Medicine
DX: Z12.31 Encounter for screening mammogram for malignant neoplasm of breast (principal); Z13.820 Encounter for screening for osteoporosis; E03.9 Hypothyroidism, unspecified; I10 Essential (primary) hypertension; M85.88 Other specified disorders of bone density and structure, other site
CPT/HCPCS: 77063; 77067; 77080

== ENCOUNTER → 2024-07-23 10:30 | Outpatient (BNV) | payer MEDICAID, SELFPAY | PROVIDERS: PCP Internal Medicine; Visit Provider Radiology Diagnostic Radiology | DX: E28.39 Other primary ovarian failure (principal) | CPT/HCPCS: 77080 ==

== ENCOUNTER 2024-12-30 13:19 | Outpatient (REF) | payer MEDICAID, SELFPAY ==
[2024-12-30 14:42] LABS: MANUAL DIFF FLAG NO
[2024-12-30 14:50] LABS: Hematocrit 39.6 % (37.0-47.0); Hemoglobin 14.2 g/dl (12.0-16.0); Imm Gran Abs Auto 0.02 X10*3/uL (0.00-0.03); Imm Gran Pct Auto 0.3 % (0.0-0.4); Lymphocytes Absolute Auto 1.7 X10*3/uL (1.2-4.9); Mean Corpuscular HGB Conc 35.9 g/dl (31.0-35.0); Mean Corpuscular Hemoglobin 31.8 pg (27.0-33.0); Mean Corpuscular Volume 88.6 fL (80.0-98.0); NRBC Abs Auto 0.000 X10*3/uL (0.0-0.012); NRBC Pct Auto 0.0 /100WBC (0.0-0.2); Platelet Count 174 X10*3/uL (160-400); Red Blood Count 4.47 X10*6/uL (4.20-5.50); White Blood Count 6.7 X10*3/uL (4.8-10.8)
[2024-12-30 15:07] LABS: Microalbum/Creatinine Ratio Ur 7.5 ug/mg cr (<30)
[2024-12-30 15:30] LABS: Alanine Aminotransferase 48 U/L (0-31); Albumin Level 4.8 g/dL (3.5-5.0); Alkaline Phosphatase 152 U/L (39-117); Anion Gap 13 (12-20); Aspartate Amino Transferase 46 U/L (5-31); Blood Urea Nitrogen 10 mg/dL (9-16); Calcium 9.6 mg/dL (8.4-10.2); Carbon Dioxide 26 mmol/L (22-29); Chloride 107 mmol/L (96-108); Estimated Glomerular Filt Rate 54; Potassium 3.6 mmol/L (3.3-5.1); Sodium 142 mmol/L (135-145); Total Protein 7.0 g/dL (6.5-8.0)
[2024-12-30 15:35] LABS: Appearance Urine Clear; Glucose Urine UA >=1000 mg/dL (Negative); PH 5.5 (5.0-9.0); Specific Gravity - Urine >= 1.030 (1.005-1.025); UMIC TRIGGER UACC YES
--- OUTSIDE RECORDS SUMMARY | 2024-12-30 17:57 | XMS_ITS | Patient Health Record ---
Author Organization [facility] Address [address] [place] [address] Care Team Providers Care Smoking Pipe Maker Name Role Phone Eric Agudelo M.D. Primary Care Provider Un available Vladimir Ansari [phone] Allergies Allergen (clinical drug ingredient) Drug/Non Drug Allergy documented on EMR Reaction Allergy Type Onset Date Status methocarbamol Robaxin Unknown Drug Allergy Act carlos Flexeril Unknown Drug Allergy Active aspirin Aspirin Unknown Drug Allergy Active N-SAID (uncoded) Unknown Allergy Act carlos AC inhibiter (uncoded) Unknown Allergy Active Reason For Referral No Information Medications Medication SIG (Take, Route, Frequency, Duration) Notes Start Date End Date Status Amitriptyline HCl 150 MG 1 tablet Orally Once a day Neuropathy and sleep Active Levothyroxine Sodium 50 MCG 1 tablet Orally Once a day Active DULoxetine HCl 30 MG 1 capsule Orally Twice a day fibromyalgia Active Pantoprazole Sodium 20 MG 2 tablets Orally Once a day Active Senna Active Genvoya [phone] MG Orally Active Olmesartan Medoxomil 40 MG 1 tablet Orally Once a day Active Folic Acid 1 MG 1 tablet Orally Once a day Active Vitamin B12 100 MCG 1 tablet Orally Once a day Active Vitamin D3 1000 UNIT 1 capsule Orally Once a day Active Problems Problem Type SNOMED Code ICD Code Onset Dates Problem Status W/U Status Risk Notes Problem [id number] Epigastric pain (R10.13) Active confirmed Problem 788410249 Gastro-esophagea l reflux disease without esophagitis (K21.9) Active confirmed Problem 501634634 Encounter for screening for malignant neoplasm of colon (Z12.11) Active confirmed Problem Screening for malignant neoplasm of rectum (719439849) Encounter for screening for malignant neoplasm of rectum (Z12.12) Active confirmed Problem [id number] Family history of colon cancer (Z80.0) Active confirmed Plan Of Treatment Future Test Test Name Order Date UPPER GI ENDOSCOPY 02/01/2015 COLONOSCOPY 05/09/2016 Insurance Providers Payer Name Payer Address Payer Phone Subscriber Number Group Number Insured Name Patient Relationship to Insured Coverage Start Date Coverage End Date Dishable [facility] [address] [address] [place], [place] [id number] MARNI SOTO Self - patient is the insured [place] [place] [address] [place] [address] [phone] [id number] MARNI SOTO Self - patient is the insured Medical (General) History Medical History History ICD Code hypertension Denies CT,DM,CVA,Lung disease kidney disease-sees Dr. Yates HIV--sees Dr. Maki GERD Neg. colonoscopy in 10/[address] Dolly wren Chronic back pain and neuropathy in s --on Vicodin Hypothyroidism Neg. HCV viral load in 2010 she describes having been tr eated for H. pylori in the past with antibiotics. EGD in 04/2015---no esophagitis, no [place] t's--small HH Surgical History Surgery Date(Month/Year) elbow surgery BTL
[2024-12-31 08:54] LABS: ~HepC Num1 0.07 S/CO (0.00-0.79); ~Hepatitis C Antibody Nonreactive (Nonreactive)
[2024-12-31 14:39] LABS: HIV RNA PCR Qn Copies NOT DETECTED copies/mL (NOT DETECTED); HIV RNA PCR Qn Log Copies NOT DETECTED (NOT DETECTED)
[2025-01-02 20:39] LABS: TS Negative Control Passed; TS Panel A 0; TS Panel B 0; TS Positive Control Passed; TSpotTB Negative (Negative)
[2025-01-05 14:29] LABS: Absolute CD3 Count 1201 cells/uL (840-3060); Absolute CD8 Count 367 cells/uL (180-1170); Percent CD3 Cells 89 % (57-85); Percent CD8 Cells 27 % (12-42)
== END 2024-12-30 13:20 | disposition home or self-care (01) ==
LOC: HO.CHCLDS 13:19
PROVIDERS: PCP Internal Medicine; Referring Provider Internal Medicine; Visit Provider Internal Medicine
DX: Z11.1 Encounter for screening for respiratory tuberculosis (principal); Z11.59 Encounter for screening for other viral diseases; Z11.3 Encounter for screening for infections with a predominantly sexual mode of transmission; I10 Essential (primary) hypertension; M79.89 Other specified soft tissue disorders; Z21 Asymptomatic human immunodeficiency virus [HIV] infection status
CPT/HCPCS: 36415; 80053; 81001; 82043; 82570; 84443; 85025; 86359; 86360; 86481; 86592; 86803; 87536

== ENCOUNTER 2025-01-14 13:03 | Outpatient (REF) | payer MEDICAID, SELFPAY ==
[2025-01-14 14:28] LABS: INTERNATIONAL NORM RATIO 0.9 (0.9-1.1); Prothrombin Time 10.4 SEC (10.9-12.4)
[2025-01-14 15:07] LABS: Alanine Aminotransferase 31 U/L (0-31); Albumin Level 4.8 g/dL (3.5-5.0); Alkaline Phosphatase 132 U/L (39-117); Anion Gap 12 (12-20); Aspartate Amino Transferase 27 U/L (5-31); Blood Urea Nitrogen 8 mg/dL (9-16); Calcium 9.3 mg/dL (8.4-10.2); Carbon Dioxide 25 mmol/L (22-29); Chloride 108 mmol/L (96-108); Estimated Glomerular Filt Rate 59; Iron 56 mcg/dL (30-160); Percent Iron Saturation 18 % (15-50); Potassium 3.5 mmol/L (3.3-5.1); Sodium 141 mmol/L (135-145); Total Iron Binding Capacity 316 mcg/dL (228-428); Total Protein 6.6 g/dL (6.5-8.0); Unsaturated Iron Binding 260 ug/dL
[2025-01-14 15:21] LABS: Ferritin 28 ng/mL (10-250)
[2025-01-15 08:40] LABS: HBS Num1 42.94 mIU/mL (0-7.99); ~Hepatitis B Surface Antibody REACTIVE (Nonreactive)
[2025-01-15 08:46] LABS: HBS Num1 41.93 mIU/mL (0-7.99); HBc Num1 0.05 S/CO (0.00-0.79); HBsAGNum1 0.52 S/CO (0.00-0.99); Hepatitis A Antibody IgM 0.23 Index (0-0.79); Hepatitis B Surface Antigen Negative (Negative); ~HepC Num1 0.06 S/CO (0.00-0.79); ~Hepatitis A Antibody IgM Nonreactive (Nonreactive); ~Hepatitis B Surface Antibody REACTIVE (Nonreactive); ~Hepatitis C Antibody Nonreactive (Nonreactive)
== END 2025-01-14 13:04 | disposition home or self-care (01) ==
LOC: HO.CHCLDS 13:03
PROVIDERS: Visit Provider Internal Medicine
DX: R74.01 Elevation of levels of liver transaminase levels (principal); M79.89 Other specified soft tissue disorders; I10 Essential (primary) hypertension
CPT/HCPCS: 36415; 80053; 82728; 82784; 83540; 85610; 86704; 86706; 86709; 86803; 87340